=== PATIENT | male | born 1990 | race Caucasian/White ===

== ENCOUNTER 2021-12-21 02:46 | Emergency (ER) | payer BC ==
[~2021-12-21] VITALS: Ht 170.2 cm; Wt 72.6 kg
--- NOTE | 2021-12-21 02:57 | NUR ---
Patient to ER bed 4 to gown for evaluation. Side rails up. Report given to Bertha ALBERTO(reg) by Osmany ALBERTO (baldomero).
[2021-12-21 02:59] VITALS: BP_SYST 139
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
[2021-12-21 04:38] LABS: BILIRUBIN,URINE NEGATIVE (NEGATIVE); BLOOD, URINE NEGATIVE (NEGATIVE); CLARITY/URINE CLEAR (CLEAR); COLOR,URINE ORANGE (YELLOW); GLUCOSE,URINE TRACE (NEGATIVE); KETONES,URINE NEGATIVE (NEGATIVE); LEUKOCYTE ESTERASE ,URINE NEGATIVE (NEGATIVE); NITRITE, URINE POSITIVE (NEGATIVE); PROTEIN URINE TRACE (NEGATIVE)
[2021-12-21 04:45] LABS: RBC,URINE NONE SEEN /HPF (0-3); URINE SULFO SALICYLIC ACID NEGATIVE (NEGATIVE)
[2021-12-21 04:46] LABS: BACTERIA,URINE None Seen /HPF (None Seen); WBC,URINE NONE SEEN /HPF (0-3)
[2021-12-21] MEDS ORDERED: CEPH-548 PO (05:22)
[2021-12-21 06:07] VITALS: BP_SYST 124
--- NOTE | 2021-12-21 06:10 | NUR ---
Patient given written and verbal discharge instructions and verbalizes understanding. ER MD discussed with patient the results and treatment provided. Patient in stable condition. ID arm band removed. IV catheter removed intact and dressing applied, no active bleeding. Rx of keflex given. Patient educated on pain management and to follow up with PMD. Pain Scale . Opportunity for questions provided and answered. Medication side effect fact sheet provided.
== END 2021-12-21 06:10 | disposition home or self-care (01) ==
LOC: SED 02:46
DX: N39.0 Urinary tract infection, site not specified (principal); R30.0 Dysuria; R31.9 Hematuria, unspecified; R10.30 Lower abdominal pain, unspecified; Z79.899 Other long term (current) drug therapy
CPT/HCPCS: 81000; 99283